=== PATIENT | male | born 1940 | race Caucasian/White ===

== ENCOUNTER 2020-12-19 19:05 | Inpatient (IN) ==
[2020-12-19] MEDS ORDERED: FUROSEMIDE 40 MG/4 ML VIAL IV STA (20:21)
[2020-12-19 20:26] LABS: Albumin 3.1 G/DL (3.4-5.0); Bilirubin,Total 0.7 MG/DL (0.20-1.00); Osmolality,Calculated 282.4 MOS/KG (273-304); Potassium 4.4 MMOL/L (3.5-5.1); Total Protein 6.2 G/DL (6.4-8.2)
[2020-12-19 20:34] LABS: Basophils # 0.1 10*3/uL (0.0-0.2); Basophils % 0.6 % (0.0-0.8); Eosinophils # 0.5 10*3/uL (0.0-0.87); Hematocrit 34.7 VOL% (42.0-52.0); Hemoglobin 9.6 GM/DL (14.0-18.0); Immature Granulocytes % 0.5 %; Immature Granulocytes Absolute 0.05 #; Lymphocytes # 1.7 10*3/uL (1.4-4.0); Lymphocytes % 15.4 % (21.2-54.2); Mean Corpuscular HGB Conc 27.7 GM/DL (32-36); Mean Corpuscular Volume 77.3 FL (87-102); Mean Platelet Volume 11.3 FL (9.6-12.0); Monocytes % 10.5 % (1.7-12.7); NRBC # 0.02 10*3/uL; Platelet Count 290 T/CUMM (130-400); Red Blood Count 4.49 MC/CUMM (3.8-5.5); Red Cell Distribution Width 18.6 % (9.3-17.3); White Blood Count 10.8 T/CUMM (4-12)
[2020-12-19] MEDS ORDERED: ZALEPLON 5 MG CAPSULE PO PRN (22:46)
[2020-12-19] MEDS ORDERED: MORPHINE 2 MG/1 ML SYRINGE IV PRN (22:46)
[2020-12-19] MEDS ORDERED: DEXTROSE 50% 25 GM/50 ML VIAL IV PRN (22:46)
[2020-12-19] MEDS ORDERED: ACETAMINOPHEN 325 MG TABLET PO PRN (22:46)
[2020-12-19] MEDS ORDERED: NICOTINE 21 MG/24 HR PATCH TRANSDERM PRN (22:46)
[2020-12-19] MEDS ORDERED: ONDANSETRON 4 MG/2 ML VIAL IV PRN (22:46)
[2020-12-19] MEDS ORDERED: GLUCAGON 1 MG VIAL IM PRN (22:46)
[2020-12-19] MEDS ORDERED: hydrALAZINE 20 MG/1 ML VIAL IV PRN (22:46)
[2020-12-19] MEDS ORDERED: guaiFENesin/DM ER 600-30 MG TABLET PO PRN (22:46)
[2020-12-19] MEDS ORDERED: diphenhydrAMINE CAP 25 MG CAPSULE PO PRN (22:46)
[2020-12-20 00:24] LABS: Albumin 2.9 G/DL (3.4-5.0); Calcium 9.1 MG/DL (8.5-10.1); Osmolality,Calculated 281.5 MOS/KG (273-304); Potassium 3.9 MMOL/L (3.5-5.1); Total Protein 6.3 G/DL (6.4-8.2)
[2020-12-20] MEDS: cefTRIAXone 1,000 MG in SODIUM CHLORIDE 0.9% 100 ML IV SCH ×2 (00:44→23:44)
[2020-12-20] MEDS: AZITHROMYCIN INJ 500 MG in SODIUM CHLORIDE 0.9% 250 ML IV SCH (01:45)
[2020-12-20] MEDS: ALBUTEROL/IPRATROPIUM 3 ML NEB RESP TX SCH ×4 (02:20→20:35)
[2020-12-20 06:11] LABS: Calcium 9.2 MG/DL (8.5-10.1); Osmolality,Calculated 279.7 MOS/KG (273-304); Potassium 3.7 MMOL/L (3.5-5.1)
[2020-12-20] MEDS ORDERED: RIVAROXABAN 15 MG TABLET PO SCH (09:00)
[2020-12-20] MEDS: TRIAMTERENE/HCTZ 37.5-25 MG CAPSULE PO SCH ×2 (09:12→09:21)
[2020-12-20] MEDS: METOPROLOL TARTRATE 50 MG TABLET PO SCH ×2 (09:13→21:10)
[2020-12-20] MEDS: MULTIVITAMIN (CENTRUM) TABLET PO SCH (09:13)
[2020-12-20] MEDS: ASPIRIN EC 81 MG TABLET PO SCH (09:13)
[2020-12-20] MEDS: DOCUSATE SODIUM 100 MG CAPSULE PO SCH ×2 (09:13→21:09)
[2020-12-20] MEDS: PANTOPRAZOLE 40 MG TABLET PO SCH (09:14)
[2020-12-20] MEDS: ENOXAPARIN 40 MG/0.4 ML SYRINGE SUBCUT SCH (09:21)
[2020-12-20] MEDS: FUROSEMIDE 40 MG/4 ML VIAL IV SCH ×2 (09:23→16:07)
[2020-12-20] MEDS ORDERED: POTASSIUM CHLORIDE 20 MEQ TABLET PO PRN (09:42)
[2020-12-20] MEDS ORDERED: ALBUTEROL/IPRATROPIUM 3 ML NEB RESP TX PRN (12:12)
[2020-12-20] MEDS: SIMVASTATIN 40 MG TABLET PO SCH (21:10)
[2020-12-21] MEDS: ALBUTEROL/IPRATROPIUM 3 ML NEB RESP TX SCH ×4 (00:38→20:05)
[2020-12-21] MEDS: AZITHROMYCIN INJ 500 MG in SODIUM CHLORIDE 0.9% 250 ML IV SCH (00:51)
[2020-12-21 06:06] LABS: Calcium 9.2 MG/DL (8.5-10.1); Osmolality,Calculated 277.8 MOS/KG (273-304); Potassium 3.8 MMOL/L (3.5-5.1)
[2020-12-21 06:26] LABS: Basophils # 0.1 10*3/uL (0.0-0.2); Basophils % 0.5 % (0.0-0.8); Eosinophils # 1.3 10*3/uL (0.0-0.87); Eosinophils % 11.8 % (0.00-10.9); Immature Granulocytes % 0.4 %; Immature Granulocytes Absolute 0.05 #; Lymphocytes # 1.9 10*3/uL (1.4-4.0); Lymphocytes % 16.8 % (21.2-54.2); Mean Corpuscular HGB Conc 28.9 GM/DL (32-36); Mean Corpuscular Volume 75.4 FL (87-102); Mean Platelet Volume 10.5 FL (9.6-12.0); Monocytes % 11.2 % (1.7-12.7); NRBC # 0.02 10*3/uL; Neutrophils % 59.3 % (38.7-73.9); Platelet Count 267 T/CUMM (130-400); Red Blood Count 4.64 MC/CUMM (3.8-5.5); Red Cell Distribution Width 18.8 % (9.3-17.3); White Blood Count 11.4 T/CUMM (4-12)
[2020-12-21 06:28] LABS: Hemoglobin 10.1 GM/DL (14.0-18.0)
[2020-12-21 06:31] LABS: Anisocytosis 2+; Eosinophils 15 % (0-10); Lymphocytes 14 % (20-55); Platelet Estimate Normal; Segmented Neutrophils 59 % (50-85); Total Cells Counted 100
[2020-12-21 06:32] LABS: Polychromasia Slight
[2020-12-21 07:38] LABS: INR 1.1; PT Patient Result 12.2 SECS (10.5-12.0)
[2020-12-21] MEDS: TRIAMTERENE/HCTZ 37.5-25 MG CAPSULE PO SCH (09:02)
[2020-12-21] MEDS: ASPIRIN EC 81 MG TABLET PO SCH (09:02)
[2020-12-21] MEDS: PANTOPRAZOLE 40 MG TABLET PO SCH (09:02)
[2020-12-21] MEDS: METOPROLOL TARTRATE 50 MG TABLET PO SCH ×2 (09:02→21:05)
[2020-12-21] MEDS: ENOXAPARIN 40 MG/0.4 ML SYRINGE SUBCUT SCH (09:02)
[2020-12-21] MEDS: DOCUSATE SODIUM 100 MG CAPSULE PO SCH ×2 (09:02→21:05)
[2020-12-21] MEDS: MULTIVITAMIN (CENTRUM) TABLET PO SCH (09:02)
[2020-12-21] MEDS: FUROSEMIDE 40 MG/4 ML VIAL IV SCH ×2 (09:15→16:25)
[2020-12-21] MEDS: cefTRIAXone 1,000 MG in SODIUM CHLORIDE 0.9% 100 ML IV SCH (21:04)
[2020-12-21] MEDS: AZITHROMYCIN 250 MG TABLET PO SCH (21:05)
[2020-12-21] MEDS: SIMVASTATIN 40 MG TABLET PO SCH (21:05)
[2020-12-22] MEDS: cefTRIAXone 1,000 MG in SODIUM CHLORIDE 0.9% 100 ML IV SCH ×3 (00:10→22:36)
[2020-12-22] MEDS: ALBUTEROL/IPRATROPIUM 3 ML NEB RESP TX SCH ×4 (01:24→20:02)
[2020-12-22 06:05] LABS: Calcium 8.9 MG/DL (8.5-10.1); Osmolality,Calculated 278.8 MOS/KG (273-304)
[2020-12-22 06:16] LABS: Basophils # 0.1 10*3/uL (0.0-0.2); Basophils % 0.8 % (0.0-0.8); Eosinophils # 1.7 10*3/uL (0.0-0.87); Eosinophils % 16.7 % (0.00-10.9); Hematocrit 32.5 VOL% (42.0-52.0); Hemoglobin 9.2 GM/DL (14.0-18.0); Immature Granulocytes % 0.4 %; Immature Granulocytes Absolute 0.04 #; Lymphocytes # 1.6 10*3/uL (1.4-4.0); Mean Corpuscular HGB Conc 28.3 GM/DL (32-36); Mean Corpuscular Volume 76.7 FL (87-102); Mean Platelet Volume 11.5 FL (9.6-12.0); Monocytes % 11.9 % (1.7-12.7); NRBC # 0.02 10*3/uL; Neutrophils % 54.2 % (38.7-73.9); Platelet Count 261 T/CUMM (130-400); Red Blood Count 4.24 MC/CUMM (3.8-5.5); Red Cell Distribution Width 18.9 % (9.3-17.3)
[2020-12-22 06:30] LABS: Anisocytosis 2+; Band Neutrophils 1 % (0-10); Eosinophils 19 % (0-10); Lymphocytes 19 % (20-55); Nucleated Red Blood Cells 1 (0-5); Platelet Estimate Normal; Segmented Neutrophils 49 % (50-85); Total Cells Counted 100
[2020-12-22 06:31] LABS: Ovalocytes Few; Poikilocytosis Slight
[2020-12-22] MEDS: PANTOPRAZOLE 40 MG TABLET PO SCH (08:17)
[2020-12-22] MEDS: METOPROLOL TARTRATE 50 MG TABLET PO SCH ×2 (08:17→20:17)
[2020-12-22] MEDS: MULTIVITAMIN (CENTRUM) TABLET PO SCH (08:17)
[2020-12-22] MEDS: ASPIRIN EC 81 MG TABLET PO SCH (08:17)
[2020-12-22] MEDS: ENOXAPARIN 40 MG/0.4 ML SYRINGE SUBCUT SCH (08:17)
[2020-12-22] MEDS: DOCUSATE SODIUM 100 MG CAPSULE PO SCH ×2 (08:18→20:18)
[2020-12-22] MEDS ORDERED: POTASSIUM CHLORIDE 20 MEQ TABLET PO ONE (13:30)
[2020-12-22] MEDS: SIMVASTATIN 40 MG TABLET PO SCH (20:17)
[2020-12-22] MEDS: AZITHROMYCIN 250 MG TABLET PO SCH (20:17)
[2020-12-23] MEDS: ALBUTEROL/IPRATROPIUM 3 ML NEB RESP TX SCH ×2 (00:02→07:49)
[2020-12-23 06:24] LABS: Calcium 9.1 MG/DL (8.5-10.1); Potassium 3.8 MMOL/L (3.5-5.1)
[2020-12-23 06:41] LABS: Basophils # 0.1 10*3/uL (0.0-0.2); Basophils % 0.8 % (0.0-0.8); Eosinophils # 2.3 10*3/uL (0.0-0.87); Hematocrit 34.6 VOL% (42.0-52.0); Immature Granulocytes % 0.4 %; Immature Granulocytes Absolute 0.04 #; Lymphocytes # 1.9 10*3/uL (1.4-4.0); Lymphocytes % 17.5 % (21.2-54.2); Mean Corpuscular HGB Conc 28.6 GM/DL (32-36); Mean Corpuscular Volume 75.7 FL (87-102); Monocytes % 10.4 % (1.7-12.7); Neutrophils % 49.9 % (38.7-73.9); Platelet Count 267 T/CUMM (130-400); Red Blood Count 4.57 MC/CUMM (3.8-5.5); Red Cell Distribution Width 18.7 % (9.3-17.3); White Blood Count 10.7 T/CUMM (4-12)
[2020-12-23 06:42] LABS: Hemoglobin 9.9 GM/DL (14.0-18.0)
[2020-12-23 06:49] LABS: Eosinophils 25 % (0-10); Lymphocytes 17 % (20-55); Segmented Neutrophils 51 % (50-85); Total Cells Counted 100
[2020-12-23 06:50] LABS: Anisocytosis 2+; Ovalocytes Few; Platelet Estimate Normal; Tear Drop Cells Few
[2020-12-23 08:02] VITALS: BP 113/59
[2020-12-23] MEDS: METOPROLOL TARTRATE 50 MG TABLET PO SCH (08:09)
[2020-12-23] MEDS: MULTIVITAMIN (CENTRUM) TABLET PO SCH (08:09)
[2020-12-23] MEDS: ASPIRIN EC 81 MG TABLET PO SCH (08:09)
[2020-12-23] MEDS: PANTOPRAZOLE 40 MG TABLET PO SCH (08:09)
[2020-12-23] MEDS: ENOXAPARIN 40 MG/0.4 ML SYRINGE SUBCUT SCH (08:09)
[2020-12-23] MEDS: DOCUSATE SODIUM 100 MG CAPSULE PO SCH (08:09)
== END 2020-12-23 11:58 | disposition home health service (06) | DRG 291 ==
LOC: N.ED 19:05 → N.EDINP 22:46 → N.5E 23:18
PROVIDERS: ADMIT Internal Medicine; ATTEND Internal Medicine